=== PATIENT | female | born 1970 | race Caucasian/White ===

== ENCOUNTER 2017-09-25 02:32 | Observation (INO) | payer BC, MEDICAID, OTHER ==
[~2017-09-25] VITALS: Ht 170.2 cm; Wt 110.0 kg
[2017-09-25 02:34] VITALS: BP 136/99; PULSE 77; RESP 18; TEMP 97.7; O2SAT 97
--- NOTE | 2017-09-25 03:12 | PD ---
HPI Chief Complaint: Flank/Kidney Pain Time Seen by Provider: 02:59 Travel History International Travel<30 days: No Contact w/Intl Traveler<30days: No Traveled to known affect area: No History of Present Illness HPI 46-year-old female came to the emergency room with history of left flank pain that started at 10 PM last night. She has been nauseous and vomited. Patient says that she has had hematuria since this morning. She has history of kidney stones in the last stone was 4 years ago when she needed lithotripsy. She says this pain feels similar. She looked uncomfortable. Vital signs are otherwise stable. No history of fever or chills. No history of dysuria. The pain has not moved since it surgeon. PENDING SALE TO [facility] Past Medical History Narrative Medical List of her past medical, surgical, social and family history is reviewed from the nursing note. Cancer: No Cardiovascular Problems: No Diabetes: No Hepatitis: No Hiatal Hernia: No Hypertension: No Kidney Stones: Yes Medical other: Yes (ARTHRITIS, REFLUX, FACET SYNDROME) Musculoskeletal: Yes (CHRONIC BACK PAIN) Reproductive: Yes (UTERINE FIBROIDS) Respiratory: No Thyroid Disease: No ?: Not : 4 Para: 4 Tubal Ligation: Yes (2001) Past Surgical History Abdominal Surgery: Yes (GASTRIC BALLOON) Genitourinary Surgery: Yes (LITHOTRYPSY) Gynecologic Surgery: Yes (TUBAL LIGATION) Pacemaker: No Other Surgery: Yes Social History Alcohol Use: No Tobacco Use: No Substance Use: No Allergies-Medications (Allergen,Severity, Reaction): Coded Allergies: No Known Allergies (Verified Adverse Reaction, Unknown, 09/25/17) Comments No known drug allergies. Reported Meds & Prescriptions Reported Meds & Active Scripts Active Narrative Medication List of her home medications reviewed from the nursing note. Review of Systems Except as stated in HPI: all other systems reviewed are Neg Genitourinary: Positive: Hematuria, Flank Pain Physical Exam Narrative GENERAL: Awake, alert, moderate distress SKIN: Focused skin assessment warm/dry. HEAD: Atraumatic. Normocephalic. EYES: Pupils equal and round. No scleral icterus. No injection or drainage. ENT: No nasal bleeding or discharge. Mucous membranes pink and moist. NECK: Trachea midline. No JVD. CARDIOVASCULAR: Regular rate and rhythm. No murmur appreciated. RESPIRATORY: No accessory muscle use. Clear to auscultation. Breath sounds equal bilaterally. GASTROINTESTINAL: Abdomen soft, non-tender, nondistended. Hepatic and splenic margins not palpable. MUSCULOSKELETAL: No obvious deformities. No clubbing. No cyanosis. No edema. NEUROLOGICAL: Awake and alert. No obvious cranial nerve deficits. Motor grossly within normal limits. Normal speech. PSYCHIATRIC: Appropriate mood and affect; insight and judgment normal. Data Data Last Documented VS Vital Signs Date Time Temp Pulse Resp B/P (MAP) Pulse Ox O2 Delivery O2 Flow Rate FiO2 09/25/17 04:12 18 09/25/17 02:34 97.7 77 136/99 (111) 97 Room Air Orders Orders Complete Blood Count With Diff (09/25/17 03:03) Comprehensive Metabolic Panel (09/25/17 03:03) Urinalysis - C+S If Indicated (09/25/17 03:03) Ct Abd/Pel W/O Iv Contrast (09/25/17 03:03) Ecg Monitoring (09/25/17 03:03) Iv Access Insert/Monitor (09/25/17 03:03) Ketorolac Inj (Toradol Inj) (09/25/17 03:15) Morphine Inj (Morphine Inj) (09/25/17 03:15) Ondansetron Inj (Zofran Inj) (09/25/17 03:15) Sodium Chloride 0.9% Flush (Ns Flush) (09/25/17 03:15) Urine Culture (09/25/17 03:10) Tamsulosin (Flomax) (09/25/17 04:00) Morphine Inj (Morphine Inj) (09/25/17 04:00) Ceftriaxone Inj (Rocephin Inj) (09/25/17 04:00) Blood Culture (09/25/17 03:51) Ondansetron Inj (Zofran Inj) (09/25/17 05:30) Consult Urology (09/25/17 ) Labs Laboratory Tests Test 09/25/17 03:10 White Blood Count 8.3 TH/MM3 Red Blood Count 4.35 MIL/MM3 Hemoglobin 13.6 GM/DL Hematocrit 39.3 % Mean Corpuscular Volume 90.3 FL Mean Corpuscular Hemoglobin 31.2 PG Mean Corpuscular Hemoglobin Concent 34.5 % Red Cell Distribution Width 12.9 % Platelet Count 303 TH/MM3 Mean Platelet Volume 8.5 FL Neutrophils (%) (Auto) 63.3 % Lymphocytes (%) (Auto) 24.2 % Monocytes (%) (Auto) 8.9 % Eosinophils (%) (Auto) 2.7 % Basophils (%) (Auto) 0.9 % Neutrophils # (Auto) 5.3 TH/MM3 Lymphocytes # (Auto) 2.0 TH/MM3 Monocytes # (Auto) 0.7 TH/MM3 Eosinophils # (Auto) 0.2 TH/MM3 Basophils # (Auto) 0.1 TH/MM3 CBC Comment DIFF FINAL Differential Comment Urine Color RED Urine Turbidity HAZY Urine pH 6.0 Urine Specific [place] 1.034 Urine Protein 100 mg/dL Urine Glucose (UA) NEG mg/dL Urine Ketones 10 mg/dL Urine Occult Blood LARGE Urine Nitrite NEG Urine Bilirubin NEG Urine Urobilinogen 2.0 MG/DL Urine Leukocyte Esterase TRACE Urine RBC /hpf Urine WBC 42 /hpf Urine Squamous Epithelial Cells 10 /hpf Urine Transitional Epithelial Cells 1 /hpf Urine Bacteria OCC /hpf Urine Mucus MANY /lpf Microscopic Urinalysis Comment CULTURE INDICATED Blood Urea Nitrogen 16 MG/DL Creatinine 0.82 MG/DL Random Glucose 110 MG/DL Total Protein 6.9 GM/DL Albumin 4.1 GM/DL Calcium Level 8.9 MG/DL Alkaline Phosphatase 58 U/L Aspartate Amino Transf (AST/SGOT) 21 U/L Alanine Aminotransferase (ALT/SGPT) 33 U/L Total Bilirubin 0.4 MG/DL Sodium Level 141 MEQ/L Potassium Level 3.8 MEQ/L Chloride Level 107 MEQ/L Carbon Dioxide Level 25.5 MEQ/L Anion Gap 9 MEQ/L Estimat Glomerular Filtration Rate 75 ML/MIN [facility] Medical Decision Making Medical Screen Exam Complete: Yes Emergency Medical Condition: Yes Medical Record Reviewed: Yes Differential Diagnosis Ureteral colic, musculoskeletal pain, pyelonephritis Narrative Course 3:12 AM patient has been medicated for pain. She mentioned that opiate makes her very nauseous and vomited but upon asking she said she would rather have the opiate since nothing else works. Awaiting for the blood test and CAT scan to be done and resulted. 5:[address] scan showed a 3 mm stone in the distal left ureter with moderate hydronephrosis. She also has a UTI. Patient was given IV Rocephin. I went to reassess the patient after second pain medication dose and Flomax. She looked very uncomfortable and said she was nauseous. Given her second dose of Zofran at this point. I do not foresee this patient successfully going home. I would admit her for intractable pain from the ureteral colic. Awaiting for the hospitalist to call back. Case was discussed with the urologist Dr. Villanueva on- call and he would consult on the patient later. Procedures EKG Prior to Arrival: No Physician Communication Physician Communication Dr. Villanueva Diagnosis Primary Impression: Ureteral colic Additional Impressions: UTI (urinary tract infection) Qualified Codes: N39.0 - Urinary tract infection, site not specified; R31.9 - Hematuria, unspecified Hydronephrosis Qualified Codes: N13.2 - Hydronephrosis with renal and ureteral calculous obstruction Intractable pain Vomiting Qualified Codes: R11.2 - Nausea with vomiting, unspecified Admitting Information Admitting Physician Requests: Admit Feroz Wood MD Sep 25, 2017 03:12
[2017-09-25] MEDS ORDERED: SODIUM CHLORIDE 0.9% FLUSH 10 ML FLUSH IVF PRN (03:15)
[2017-09-25] MEDS ORDERED: KETOROLAC TROMETHAMINE 30 MG/ML (IVP) VIAL IV PUSH ONE (03:15)
[2017-09-25] MEDS ORDERED: ONDANSETRON HCL 4 MG/2 ML VIAL IV PUSH ONE ×2 (03:15→05:30)
[2017-09-25] MEDS ORDERED: MORPHINE SULFATE 4 MG/ML INJ IV PUSH ONE (03:15)
[2017-09-25 03:17] LABS: AUTOMATED NEUTROPHIL # 5.3 TH/MM3 (1.8-7.7); BASOPHIL # 0.1 TH/MM3 (0-0.2); BASOPHIL % 0.9 % (0.0-2.0); EOSINOPHIL # 0.2 TH/MM3 (0-0.4); EOSINOPHIL % 2.7 % (0.0-4.0); HEMATOCRIT 39.3 % (35.0-46.0); HEMO FLAGS DIFF FINAL; LYMPH % 24.2 % (9.0-44.0); MEAN CELL VOLUME 90.3 FL (80.0-100.0); MEAN CORPUSCULAR HEMOGLOBIN 31.2 PG (27.0-34.0); MEAN CORPUSCULAR HGB CONC 34.5 % (32.0-36.0); MONO % 8.9 % (0.0-8.0); NEUT % 63.3 % (16.0-70.0); PLATELET COUNT 303 TH/MM3 (150-450); RED BLOOD COUNT 4.35 MIL/MM3 (4.00-5.30); RED CELL DISTRIBUTION WIDTH 12.9 % (11.6-17.2); WHITE BLOOD COUNT 8.3 TH/MM3 (4.0-11.0)
[2017-09-25 03:41] LABS: BACTERIA, URINE OCC /hpf; BLOOD, URINE LARGE (NEG); COMMENT (UR) CULTURE INDICATED; CULTURE IF INDICATED CULTURE INDICATED; GLUCOSE,URINE NEG (NEG); KETONE, URINE 10 mg/dL (NEG); MUCUS URINE MANY /lpf (OCC); NITRITE,URINE NEG (NEG); SQUAMOUS EPITHELIAL CELL URINE 10 /hpf (0-5); TRANSITIONAL EPI CELLS, URINE 1 /hpf
[2017-09-25 03:42] LABS: URINE COLOR RED (YELLW/STRAW)
--- NOTE | 2017-09-25 03:46 | RADRPT ---
EXAM DATE/TIME: 09/25/2017 03:15 [place] COMPARISON: CT ABDOMEN & PELVIS W/O CONTRAST, July 07, 2012, 10:21. INDICATIONS : Left flank pain. ORAL CONTRAST: No oral contrast ingested. RADIATION DOSE: 22.63 CTDIvol (mGy) ; Patient body habitus MEDICAL HISTORY : Renal calculi. Uterine fibroids. SURGICAL HISTORY : Tubal ligation. Gastric balloon. ENCOUNTER: Initial ACUITY: 1 day PAIN SCALE: 6/10 LOCATION: Left flank TECHNIQUE: Volumetric scanning of the abdomen and pelvis was performed. Using automated exposure control and ad justment of the mA and/or kV according to patient size, radiation dose was kept as low as reasonably achievable to obtain optimal diagnostic quality images. DICOM format image data is available electro nically for review and comparison. FINDINGS: LOWER LUNGS: The visualized lower lungs are clear. LIVER: Homogeneous density without lesion. There is no dilation of the biliary tree. No calcified gallston es. SPLEEN: Normal size without lesion. PANCREAS: Within normal limits. KIDNEYS: There some perinephric stranding on the left. There is mild hydronephrosis and hydroureter down to a 3 x 3 mm stone is distally in the left ureter. No other calcifications identified in either kidney. T he right kidney shows no evidence of obstruction. ADRENAL GLANDS: Within normal limits. VASCULAR: There is no aortic aneurysm. BOWEL/MESENTERY: The stomach, small bowel, and colon demonstrate no acute abnormality. There is no free intraperitone al air or fluid. Gastric balloon ABDOMINAL WALL: Within normal limits. RETROPERITONEUM: There is no lymphadenopathy. BLADDER: No wall thickening or mass. REPRODUCTIVE: Within normal limits. INGUINAL: There is no lymphadenopathy or hernia. MUSCULOSKELETAL: Within normal limits for patient age. CONCLUSION: Moderate hydronephrosis and hydroureter secondary to a left distal ureteral calcification measuring 3 x 3 mm across Carl Asif MD on September 25, 2017 at 3:43 Board Certified Radiologist. This report was verified electronically.
[2017-09-25 03:47] LABS: ALKALINE PHOSPHATASE 58 U/L (45-117); TOTAL BILIRUBIN ADULT 0.4 MG/DL (0.2-1.0)
[2017-09-25 03:50] LABS: ALT (GPT) 33 U/L (10-53); ANION GAP 9 MEQ/L (5-15); AST (GOT) 21 U/L (15-37); BICARBONATE 25.5 MEQ/L (21.0-32.0); BLOOD UREA NITROGEN 16 MG/DL (7-18); CHLORIDE 107 MEQ/L (98-107); GLOMERULAR FILTRATION RATE 75 ML/MIN (>89); POTASSIUM 3.8 MEQ/L (3.5-5.1); SODIUM (NA) 141 MEQ/L (136-145)
[2017-09-25] MEDS ORDERED: cefTRIAXone INJ 1,000 MG in SODIUM CHLORIDE 0.9% INJ 100 ML IV ONE (04:00)
[2017-09-25] MEDS ORDERED: MORPHINE SULFATE 8 MG/ML INJ IV PUSH ONE (04:00)
[2017-09-25] MEDS ORDERED: TAMSULOSIN HCL 0.4 MG CAP PO ONE (04:00)
[2017-09-25] MEDS ORDERED: MORPHINE SULFATE 8 MG/ML INJ IV PUSH PRN (06:15)
[2017-09-25] MEDS ORDERED: NS + KCL 20 MEQ INJ 1,000 ML IV SCH (06:15)
[2017-09-25] MEDS ORDERED: ONDANSETRON HCL 4 MG/2 ML VIAL IV PUSH PRN ×2 (06:15→09:00)
[2017-09-25 06:35] VITALS: BP 121/74; PULSE 65; RESP 16; O2SAT 99
[2017-09-25] MEDS ORDERED: traMADol HCL 50 MG TAB PO PRN (08:45)
--- NOTE | 2017-09-25 08:49 | HHI.HP ---
HPI Service [facility] Hospitalists Primary Care Physician Coco Castillo M.D. Admission Diagnosis ureteral colic, UTI, intractable pain, vomiting Chief Complaint: Flank pain Travel History International Travel<30 Days: No Contact w/Intl Traveler <30 Da: No Traveled to Known Affected Are: No History of Present Illness Mrs. Robin is a pleasant 46 y/o WF with nephrolithiasis, GERD and arthritis who presented to the ED at [facility] on 09/25/17 with complaints of intractable left flank pain that began around 2200 last night. She states that yesterday morning she started having hematuria and this occurred several times yesterday. She did not have any nausea/vomiting or pain until yesterday evening. The flank pain significantly worsened in a few hours after onset and she began having nausea and vomited and this prompted her to come to the ED for further evaluation. She has history of kidney stones and the last stone was around 4 years ago and she required lithotripsy at that time. She says this pain feels similar to pain she has had in the past with her kidney stones but this pain has been worse. She denies any fever or chills. No history of dysuria, urinary frequency or suprapubic pain. Of note, the pt states that she had a gastric balloon placed about 1 month ago and has been eating/drinking a lot less than normal. She has lost about 22lbs in the last month. CT Abd/pelvis in the ED noted moderate hydronephrosis and hydroureter secondary to a left distal ureteral calcification measuring 3 x 3 mm across. Pt is being admission under observation for pain control and Urology consultation. Review of Systems Constitutional: DENIES: Fever, Chills Eyes: DENIES: Blurred vision, Vision loss Ears, nose, mouth, throat: DENIES: Hearing loss Respiratory: DENIES: Cough, Sputum production, Shortness of breath Cardiovascular: DENIES: Chest pain, Palpitations, Lower Extremity Edema Gastrointestinal: COMPLAINS OF: Abdominal pain, GERD, Nausea, Vomiting, DENIES : Constipation, Diarrhea Genitourinary: COMPLAINS OF: Hematuria, DENIES: Urinary frequency, Urinary incontinence, Urgency, Dysuria Musculoskeletal: COMPLAINS OF: Back pain Integumentary: DENIES: Rash Neurologic: DENIES: Headache Psychiatric: DENIES: Confusion Past Family Social History Past Medical History Nephrolithiasis, calcium oxalate stones per the pt GERD Arthritis Chronic back pain Hx of uterine fibroids Past Surgical History Gastric balloon placed about 1 month ago Lithotripsy 4 years ago Tubal ligation 15 years ago Reported Medications Protonix 40mg BID Ranitidine 50mg HS Naproxen Sodium BID Allergies: Coded Allergies: No Known Allergies (Verified Adverse Reaction, Unknown, 09/25/17) Family History Mother is alive with RA Father history is unknown Three older brother is good health Social History Denies any alcohol, tobacco or illicit drug use with 4 children, three boys 1 girl Pt works as a chairman president and chief executive officer Physical Exam Vital Signs Vital Signs Date Time Temp Pulse Resp B/P (MAP) Pulse Ox O2 Delivery O2 Flow Rate FiO2 09/25/17 06:35 65 16 121/74 (90) 99 Room Air 09/25/17 04:12 18 09/25/17 04:07 18 09/25/17 03:37 18 09/25/17 02:34 97.7 77 18 136/99 (111) 97 Room Air Physical Exam GENERAL: This is a well-nourished, well-developed patient, in no apparent distress. HEENT: Atraumatic. Normocephalic. No temporal or scalp tenderness. No scleral icterus. Airway patent. NECK: Trachea midline, supple, nontender. CARDIO: Regular. RESP: CTA bilaterally. No wheezes, rales, or rhonchi. ABD: +BS, soft, obese, nondistended. Mild left sided flank tenderness EXT: Extremities without clubbing, cyanosis, or edema. NEURO: Awake and alert. Motor and sensory grossly within normal limits. Normal speech. Laboratory Laboratory Tests Test 09/25/17 03:10 White Blood Count 8.3 Red Blood Count 4.35 Hemoglobin 13.6 Hematocrit 39.3 Mean Corpuscular Volume 90.3 Mean Corpuscular Hemoglobin 31.2 Mean Corpuscular Hemoglobin Concent 34.5 Red Cell Distribution Width 12.9 Platelet Count 303 Mean Platelet Volume 8.5 Neutrophils (%) (Auto) 63.3 Lymphocytes (%) (Auto) 24.2 Monocytes (%) (Auto) 8.9 Eosinophils (%) (Auto) 2.7 Basophils (%) (Auto) 0.9 Neutrophils # (Auto) 5.3 Lymphocytes # (Auto) 2.0 Monocytes # (Auto) 0.7 Eosinophils # (Auto) 0.2 Basophils # (Auto) 0.1 CBC Comment DIFF FINAL Differential Comment Urine Color RED Urine Turbidity HAZY Urine pH 6.0 Urine Specific [place] 1.034 Urine Protein 100 Urine Glucose (UA) NEG Urine Ketones 10 Urine Occult Blood LARGE Urine Nitrite NEG Urine Bilirubin NEG Urine Urobilinogen 2.0 Urine Leukocyte Esterase TRACE Urine RBC Urine WBC 42 Urine Squamous Epithelial Cells 10 Urine Transitional Epithelial Cells 1 Urine Bacteria OCC Urine Mucus MANY Microscopic Urinalysis Comment CULTURE INDICATED Blood Urea Nitrogen 16 Creatinine 0.82 Random Glucose 110 Total Protein 6.9 Albumin 4.1 Calcium Level 8.9 Alkaline Phosphatase 58 Aspartate Amino Transf (AST/SGOT) 21 Alanine Aminotransferase (ALT/SGPT) 33 Total Bilirubin 0.4 Sodium Level 141 Potassium Level 3.8 Chloride Level 107 Carbon Dioxide Level 25.5 Anion Gap 9 Estimat Glomerular Filtration Rate 75 Date/Time Source Procedure Growth Status 09/25/17 04:30 Blood Peripheral Aerobic Blood Culture Pending Received 09/25/17 04:30 Blood Peripheral Anaerobic Blood Culture Pending Received 09/25/17 03:10 Urine Clean Catch Urine Culture Pending Received Result Diagram: 09/25/17 0310 09/25/17 0310 Imaging Last Impressions Abdomen/Pelvis CT 09/25/17 0303 Signed Impressions: Service Date/Time: Monday, September 25, 2017 03:15 - CONCLUSION: Moderate hydronephrosis and hydroureter secondary to a left distal ureteral calcification measuring 3 x 3 mm across Carl Asif MD Septic Shock Reassessment Heart: Regular rate and rhythm Lungs: Clear Skin: Warm Caprini VTE Risk Assessment Caprini VTE Risk Assessment: No/Low Risk (score <= 1) Caprini Risk Assessment Model Point Value = 1 Point Value = 2 Point Value = 3 Point Value = 5 Age 41-60 Minor surgery BMI > 25 kg/m2 Swollen legs Varicose veins or History of unexplained or recurrent spontaneous Oral contraceptives or hormone replacement Sepsis (< 1 month) Serious lung disease, including pneumonia (< 1 month) Abnormal pulmonary function Acute myocardial infarction Congestive heart failure (< 1 month) History of inflammatory bowel disease Medical patient at bed rest Age 61-74 Arthroscopic surgery Major open surgery (> 45 min) Laparoscopic surgery (> 45 min) Malignancy Confined to bed (> 72 hours) Immobilizing plaster cast Central venous access Age >= 75 History of VTE Family history of VTE Factor V Leiden Prothrombin [id number] Lupus anticoagulant Anticardiolipin antibodies Elevated serum homocysteine Heparin-induced thrombocytopenia Other congenital or acquired thrombophilia Stroke (< 1 month) Elective arthroplasty Hip, pelvis, or leg fracture Acute spinal cord injury (< 1 month) Prophylaxis Regimen Total Risk Factor Score Risk Level Prophylaxis Regimen 0-1 Low Early ambulation 2 Moderate Order ONE of the following: *Sequential Compression Device (SCD) *Heparin 5000 units SQ BID 3-4 Higher Order ONE of the following medications: *Heparin 5000 units SQ TID *Enoxaparin/Lovenox 40 mg SQ daily (WT < 150 kg, CrCl > 30 mL/min) *Enoxaparin/Lovenox 30 mg SQ daily (WT < 150 kg, CrCl > 10-29 mL/min) *Enoxaparin/Lovenox 30 mg SQ BID (WT < 150 kg, CrCl > 30 mL/min) AND/OR *Sequential Compression Device (SCD) 5 or more Highest Order ONE of the following medications: *Heparin 5000 units SQ TID (Preferred with Epidurals) *Enoxaparin/Lovenox 40 mg SQ daily (WT < 150 kg, CrCl > 30 mL/min) *Enoxaparin/Lovenox 30 mg SQ daily (WT < 150 kg, CrCl > 10-29 mL/min) *Enoxaparin/Lovenox 30 mg SQ BID (WT < 150 kg, CrCl > 30 mL/min) AND *Sequential Compression Device (SCD) Assessment and Plan Problem List: (1) Ureteral colic ICD Codes: N23 - Unspecified renal colic Status: Acute Plan: Pt is a 46 y/o female with hx of nephrolithiasis, GERD and arthritis. She recently had a gastric balloon placed about 1 month ago for obesity and has had significantly decreased PO intake. Ureteral Colic Hydronephrosis Nephrolithiasis Intractable pain Nausea&vomiting - Pt presented to the ED with intractable left flank pain and hematuria. - CT Abd/pelvis (09/25) --> Moderate hydronephrosis and hydroureter secondary to a left distal ureteral calcification measuring 3 x 3 mm across - Pt not tolerating the Morphine, causing her more nausea - Tramadol 50mg Q6H PRN - Flomax 0.4mg po daily - Zofran PRN - IVF - Urology has been consulted - Supportive care - UA was abnormal but pt without any symptoms of UTI, normal WBC count and no fevers. Pt was given a dose of Rocephin in the ED but we will not continue Abx at this time. Urine culture and Blood cultures are pending. GERD - Protonix 40mg po BID (2) Hydronephrosis ICD Codes: N13.30 - Unspecified hydronephrosis Status: Acute Plan: - See above (3) Intractable pain ICD Codes: R52 - Pain, unspecified Status: Acute Plan: - See above (4) Vomiting ICD Codes: R11.10 - Vomiting, unspecified Status: Acute Plan: - See above (5) GERD (gastroesophageal reflux disease) ICD Codes: K21.9 - Gastro-esophageal reflux disease without esophagitis Status: Chronic Plan: - See above Assessment and Plan Patient examined. Assessment and plan formulated with Sol Cates PA-C. I agree with the above. d/c home. flomax.zofran.ultram. drink alot of fluid. f/u urology. Problem Qualifiers (1) Hydronephrosis: Qualified Codes: N13.2 - Hydronephrosis with renal and ureteral calculous obstruction (2) Vomiting: Qualified Codes: R11.2 - Nausea with vomiting, unspecified Sol Cates Sep 25, 2017 08:49 Igor Carrillo MD Sep 25, 2017 15:23
[2017-09-25] MEDS ORDERED: PANTOPRAZOLE SOD 40 MG DELAYED RELEASE TAB PO SCH (09:15)
[2017-09-25] MEDS ORDERED: ACETAMINOPHEN 325 MG TAB PO PRN (09:15)
[2017-09-25] MEDS ORDERED: traMADol HCL 50 MG TAB PO ONE (09:30)
--- NOTE | 2017-09-25 12:39 | MB ---
cc: SERENE COLES DATE OF CONSULTATION 09/25/2017 REASON FOR CONSULTATION Ms. Robin is a pleasant 46-year-old female with a history of stones who presents with findings on CT scan to the emergency room with a 3 x 3 mm distal left UVJ calculus. Her pain began last evening and she developed some nausea and vomiting. She denies any fever or chills. She has had prior stones in the past and underwent lithotripsy approximately four years ago. She has also required intervention with stents in the past, as well as cystoscopy. PAST MEDICAL HISTORY Her medical history also includes: 1. Nephrolithiasis 2. GERD 3. Arthritis 4. Back pain 5. Uterine fibroid PAST SURGICAL HISTORY 1. Gastric balloon placed lithotripsy with cystoscopy and stent Insertion. 2. Tubal ligation 15 years ago. MEDICATIONS For medications, refer to the chart. ALLERGIES NO KNOWN DRUG ALLERGIES. FAMILY HISTORY Notable for arthritis on her mother's side. SOCIAL HISTORY She denies smoking, drinking or using drugs. REVIEW OF SYSTEMS She notes left-sided flank pain associated with some nausea and vomiting. Denies fever or chills. Denies gait disturbances bleeding disorders. Denies paresthesias. Denies any skin lesions. Denies chest pain, shortness of breath. Denies diarrhea or constipation. Denies any urinary tract infections but notes a history of stones. Denies any psychiatric problems. The remaining review of review of systems were performed and are negative. PHYSICAL EXAM VITAL SIGNS: Her present vital signs today temperature is 97.7, heart rate 65, respiratory rate 16, blood pressure 121/74, 99% on room air. GENERAL: She is an obese 46-year-old female in no acute distress. HEAD, EARS, EYES, NOSE, AND THROAT: Normocephalic, atraumatic. Pupils equal, round, regular and react to light. Extraocular movements intact. NECK: Supple. HEART: Regular rate and rhythm. LUNGS: Clear. ABDOMEN: Soft. There is some left-sided lower quadrant tenderness and left CVA tenderness is noted. GENITALIA: Normal female external genitalia is noted. EXTREMITIES: Show no evidence of cyanosis, clubbing or edema. NEUROLOGIC: Cranial nerves: II-XII are intact. PSYCHIATRIC: Generalized mood. SKIN: No lesions are identified. LABORATORY DATA White count 8.3, hemoglobin 13.6, hematocrit 39.3, platelet count of 303. Sodium 141, potassium 3.8, chloride 107, CO2 is 25.5, BUN of 16, creatinine 0.82, glucose of 110. Urinalysis shows 42 white cells and numerous red cells. CT scan demonstrates a 3 x 3 mm left distal ureteral calcification with moderate hydronephrosis as noted. ASSESSMENT This is a 46-year-old female with a history of stones and the finding of a 3 x 3 mm left distal ureteral stone. RECOMMENDATIONS IV fluids, pain management, no intervention required at this point in time. She will pass the stone on her own. Thank you for the consult and allowing me to participate in the care of this patient. Serene MEDINA /11:55 AM /12:38 PM
[2017-09-25 13:05] VITALS: BP 124/84; PULSE 66; RESP 12; O2SAT 100
[2017-09-25 13:38] VITALS: BP 120/70; PULSE 67; RESP 16; TEMP 98; O2SAT 99
[2017-09-25] MEDS ORDERED: SODIUM CHLOR 0.9% 1000 ML INJ 1,000 ML IV SCH (15:15)
[2017-09-25] MEDS ORDERED: TAMS5CAP PO ×2 (15:20→15:29)
[2017-09-25] MEDS ORDERED: TRAM50 PO ×3 (15:24→15:28)
[2017-09-25] MEDS ORDERED: ZOFR4TAB3 SL (15:26)
[2017-09-26] MEDS ORDERED: TAMSULOSIN HCL 0.4 MG CAP PO SCH (09:00)
== END 2017-09-25 16:48 | disposition home or self-care (01) ==
LOC: NEPC 02:32 → NEDA 05:41 → NEPGCP 13:18
PROVIDERS: ADMIT Hospitalist; ATTEND Hospitalist
DX: N13.2 Hydronephrosis with renal and ureteral calculous obstruction (principal); R11.2 Nausea with vomiting, unspecified; N28.89 Other specified disorders of kidney and ureter; N39.0 Urinary tract infection, site not specified; K21.9 Gastro-esophageal reflux disease without esophagitis; R52 Pain, unspecified; M54.9 Dorsalgia, unspecified; G89.29 Other chronic pain; E66.9 Obesity, unspecified; M19.90 Unspecified osteoarthritis, unspecified site; Z87.442 Personal history of urinary calculi
CPT/HCPCS: 74176; 80053; 81001; 85025; 87040; 87086; 96365; 96366; 96375; 96376; 99285; G0378; J0696; J1885; J2270; J2405; J3480